=== PATIENT | female | born 1970 | race Caucasian/White ===

== ENCOUNTER → 2024-02-02 13:30 | Outpatient (REF) | payer BC, SELFPAY | LOC: RAD 13:30 | PROVIDERS: ATTENDING PHYSICIAN Physician Assistant | DX: M79.641 Pain in right hand (principal) | CPT/HCPCS: 73110; 73130 ==

== ENCOUNTER → 2024-02-08 15:16 | Outpatient (REF) | payer BC, SELFPAY | LOC: RAD 15:16 | PROVIDERS: ATTENDING PHYSICIAN Physical Medicine & Rehabilitation; FAMILY PHYSICIAN Family Medicine | DX: F07.81 Postconcussional syndrome (principal); M54.2 Cervicalgia | CPT/HCPCS: 72040; 72100 ==

== ENCOUNTER 2024-02-20 06:41 | Outpatient (RCR) | payer BC, SELFPAY | END 2024-02-20 23:59 | disposition home or self-care (01) | LOC: RPT 06:41 | PROVIDERS: ATTENDING PHYSICIAN Physical Medicine & Rehabilitation; FAMILY PHYSICIAN Family Medicine | DX: M54.2 Cervicalgia (principal); F07.81 Postconcussional syndrome; M25.531 Pain in right wrist; Z73.6 Limitation of activities due to disability | CPT/HCPCS: 97010; 97110; 97112; 97140; 97163; 97167; 97530; 97535 ==

== ENCOUNTER → 2024-03-11 08:47 | Outpatient (REF) | payer BC, SELFPAY | LOC: WDC 08:47 | PROVIDERS: ATTENDING PHYSICIAN Obstetrics & Gynecology | DX: R91.1 Solitary pulmonary nodule (principal); Z82.3 Family history of stroke; Z12.31 Encounter for screening mammogram for malignant neoplasm of breast | CPT/HCPCS: 77063; 77067 ==

== ENCOUNTER → 2024-03-13 14:01 | Outpatient (REF) | payer BC, SELFPAY | LOC: MRI 3T 14:01 | PROVIDERS: ATTENDING PHYSICIAN Physical Medicine & Rehabilitation; FAMILY PHYSICIAN Family Medicine | DX: M54.2 Cervicalgia (principal) | CPT/HCPCS: 72141 ==

== ENCOUNTER 2024-03-15 06:41 | Outpatient (RCR) | payer BC, SELFPAY | END 2024-03-15 23:59 | disposition home or self-care (01) | LOC: RPT 06:41 | PROVIDERS: ATTENDING PHYSICIAN Physical Medicine & Rehabilitation; FAMILY PHYSICIAN Family Medicine | DX: M25.531 Pain in right wrist (principal); Z73.6 Limitation of activities due to disability | CPT/HCPCS: 97010; 97110; 97112; 97140; 97166; 97530; 97535 ==

== ENCOUNTER 2024-03-29 09:00 | Outpatient (RCR) | payer BC, SELFPAY | END 2024-03-29 23:59 | disposition home or self-care (01) | LOC: RPT 09:00 | PROVIDERS: ATTENDING PHYSICIAN Physical Medicine & Rehabilitation; FAMILY PHYSICIAN Family Medicine | DX: F07.81 Postconcussional syndrome (principal); M54.2 Cervicalgia; M25.531 Pain in right wrist; Z73.6 Limitation of activities due to disability | CPT/HCPCS: 97010; 97018; 97110; 97112; 97140; 97530; 97535 ==

== ENCOUNTER 2024-04-18 12:07 | Outpatient (RCR) | payer BC, SELFPAY | END 2024-04-18 23:59 | disposition home or self-care (01) | LOC: ROT 12:07 | PROVIDERS: ATTENDING PHYSICIAN Orthopaedic Surgery Hand Surgery; FAMILY PHYSICIAN Family Medicine | DX: M79.642 Pain in left hand (principal); M79.641 Pain in right hand (principal); Z73.6 Limitation of activities due to disability; S62.306D Unspecified fracture of fifth metacarpal bone, right hand, subsequent encounter for fracture with routine healing | CPT/HCPCS: 97018; 97110; 97140; 97166; 97535 ==

== ENCOUNTER 2024-05-10 08:00 | Outpatient (RCR) | payer BC, SELFPAY | END 2024-05-10 23:59 | disposition home or self-care (01) | LOC: RPT 08:00 | PROVIDERS: ATTENDING PHYSICIAN Physical Medicine & Rehabilitation; FAMILY PHYSICIAN Family Medicine | DX: F07.81 Postconcussional syndrome (principal); M54.2 Cervicalgia; M25.511 Pain in right shoulder; M25.531 Pain in right wrist; Z73.6 Limitation of activities due to disability | CPT/HCPCS: 97010; 97110; 97112; 97140; 97530 ==

== ENCOUNTER 2024-05-22 10:48 | Outpatient (RCR) | payer BC, SELFPAY | END 2024-05-22 23:59 | disposition home or self-care (01) | LOC: ROT 10:48 | PROVIDERS: ATTENDING PHYSICIAN Orthopaedic Surgery Hand Surgery; FAMILY PHYSICIAN Family Medicine | DX: M79.641 Pain in right hand (principal); Z73.6 Limitation of activities due to disability; S62.306D Unspecified fracture of fifth metacarpal bone, right hand, subsequent encounter for fracture with routine healing; M79.642 Pain in left hand | CPT/HCPCS: 97018; 97035; 97110; 97140 ==

== ENCOUNTER 2024-05-30 13:28 | Outpatient (RCR) | payer BC, SELFPAY | END 2024-05-30 23:59 | disposition home or self-care (01) | LOC: RPT 13:28 | PROVIDERS: ATTENDING PHYSICIAN Physical Medicine & Rehabilitation; FAMILY PHYSICIAN Family Medicine | DX: F07.81 Postconcussional syndrome (principal); M54.2 Cervicalgia; M25.531 Pain in right wrist; Z73.6 Limitation of activities due to disability | CPT/HCPCS: 97530 ==

== ENCOUNTER 2024-06-05 12:17 | Outpatient (RCR) | payer BC, SELFPAY | END 2024-06-05 23:59 | disposition home or self-care (01) | LOC: ROT 12:17 | PROVIDERS: ATTENDING PHYSICIAN Orthopaedic Surgery Hand Surgery; FAMILY PHYSICIAN Family Medicine | DX: M79.641 Pain in right hand (principal); Z73.6 Limitation of activities due to disability; S62.306D Unspecified fracture of fifth metacarpal bone, right hand, subsequent encounter for fracture with routine healing; M79.642 Pain in left hand | CPT/HCPCS: 97018; 97110 ==

== ENCOUNTER → 2024-10-07 09:05 | Outpatient (REF) | payer BC, SELFPAY | LOC: HWRAD 09:05 | PROVIDERS: ATTENDING PHYSICIAN Otolaryngology; FAMILY PHYSICIAN Family Medicine | DX: J34.2 Deviated nasal septum (principal) | CPT/HCPCS: 70486 ==

== ENCOUNTER → 2025-04-08 16:02 | Outpatient (REF) | payer BC, SELFPAY | LOC: WDC 16:02 | PROVIDERS: ATTENDING PHYSICIAN Obstetrics & Gynecology; FAMILY PHYSICIAN Family Medicine | DX: Z12.31 Encounter for screening mammogram for malignant neoplasm of breast (principal) | CPT/HCPCS: 77063; 77067 ==